=== PATIENT | female | born 1960 | race Caucasian/White ===

== ENCOUNTER 2017-10-26 06:46 | Inpatient (IN) ==
[2017-10-26] MEDS ORDERED: DiltiaZEM 25 MG/5 ML INJECTION IVP ONE (07:09)
[2017-10-26] MEDS ORDERED: LORazepam 1 MG TABLET PO ONE (07:09)
[2017-10-26] MEDS ORDERED: ONDANSETRON 4 MG/2 ML INJECTION IVP ONE (07:09)
[2017-10-26] MEDS ORDERED: NS 1,000 ML IV ONE (07:09)
--- NOTE | 2017-10-26 07:16 | Emergency Department Report ---
General Adult HPI - General Chief complaint: Medical Emergency Stated complaint: dehydrated about a month,feels weak Time Seen by Provider: 10/26/17 07:08 - History of Present Illness HPI narrative: 57-year-old female brought in by EMS with tachycardia and dehydration. She has a long history of alcohol use and nicotinic abuse. Is been struggling with anxiety recently. She also has had issues with weight loss. Increasing weakness and fatigue. She is satting at 95% on room air with a heart rate of 161. Blood pressure stable 114/54. - Related Data Home Medications Medication Instructions Recorded Confirmed Lisinopril 40 tab PO DAILY #0 06/29/11 10/26/17 Metoprolol Tartrate 1 tab PO DAILY #0 06/29/11 10/26/17 Ranitidine [Zantac] 150 mg PO DAILY 10/26/17 10/26/17 Previous Rx's Medication Instructions Recorded Amlodipine [Norvasc] 5 mg PO DAILY #30 tab 05/28/17 Allergies Allergy/AdvReac Type Severity Reaction Status Date / Time No Known Allergies Allergy Unknown Verified 10/26/17 07:13 Review of Systems All systems: reviewed and negative except as stated PFSH Patient Stated Medical History Cataracts Yes Hypertension Yes Gastroesophageal Reflux Yes Disease - Social History Smoking status: Current every day smoker Substance use type: does not use Physical Exam - Limitations Limitations: no limitations - General General appearance: alert, in distress (tachycardia) - Normal Exams: Head:: Normocephalic without trauma Chest/Respirations:: with good airflow, and symmetry bilaterally Abdomen:: Bowel sounds positive, soft, non-tender, non-distended, no hepatosplenomegaly, masses or bruits noted Neurological:: Patient is alert, and oriented, cranial nerves, motor/sensory/ cerebellar, exams w/o gross deficits, to observation Psychiatric:: Patient exhibits, appropriate attention, emotion and affect - Respiratory Respiratory exam: Present: wheezes - Cardiovascular Cardiovascular exam: Present: tachycardia, normal heart sounds Course Vital Signs Temperature 97.6 F 10/26/17 06:48 Pulse Rate 159 H 10/26/17 06:48 Respiratory Rate 22 10/26/17 06:48 Blood Pressure 114/54 10/26/17 06:48 Pulse Oximetry 99 10/26/17 06:48 Temperature 97.6 F 10/26/17 06:48 Pulse Rate 78 10/26/17 10:30 Respiratory Rate 20 10/26/17 10:30 Blood Pressure 110/62 10/26/17 10:30 Pulse Oximetry 94 10/26/17 10:30 Medical Decision Making - [facility] Narrative Medical decision making narrative: Patient initially presented with pulse of 160, blood pressure was stable greater than 120 systolic with appropriate pulse ox on room air. She was very fatigued and weak. Cardizem 10 mg given IV as this initially looks like it may be atrial fibrillation with RVR. She was also given a 1 L bolus of normal saline. CBC CMP ordered. Patient has significantly low potassium with hypokalemia of 2.2. Normal saline 1 L given IV, Zofran 4 mg given IV. Potassium 10 mEq IV with lidocaine a commercial real estate underwriter and 40 mg oral was given. Potassium rechecked and was 2.8. Patient has had significant voluminous diarrhea, with loss of control as she now wears depends. This diarrhea has been going on for over 2 months by history. She has had 30 pound weight loss in the last year. PCR for stool including C. difficile was ordered. Heart rate regulated to 80s with normal sinus rhythm and occasional PAC. I think dehydration was the main cause of this. Patient will be admitted to hospitalist service for continued hydration and management of low potassium. As well as evaluation of chronic diarrhea. - Lab Data Result diagrams: 10/26/17 07:20 10/26/17 09:16 Lab Results 10/26/17 10/26/17 10/26/17 Range/Units 07:20 07:20 09:16 WBC 9.3 (4.5-11.0) T/MM3 RBC 3.91 L (4.00-5.20) M/MM3 Hgb 12.6 (12-16) GM/DL Hct 38.7 (36-46) % MCV 99.0 (80-100) UM3 MCH 32.2 (26-34) UUG MCHC 32.6 (31-37) GM/DL RDW Std Deviation 56.2 H (36.9-50.2) FL Plt Count 304 (130-400) T/MM3 MPV 10.9 (9.4-12.4) UM3 Immature Gran % (Auto) Not performed Neut % (Auto) Not performed Lymph % (Auto) Not performed Towns % (Auto) Not performed Eos % (Auto) Not performed Baso % (Auto) Not performed Neut # (Auto) Not performed Lymph # (Auto) Not performed Towns # (Auto) Not performed Eos # (Auto) Not performed Baso # (Auto) Not performed Abs Immat Gran (auto) Not performed Neutrophils % (Manual) 88.0 H (33-66) % Band Neutrophils % 2.0 (0-6) % Lymphocytes % (Manual) 4.0 L (23-45) % Monocytes % (Manual) 4.0 (0-9.0) % Basophils % (Manual) 2.0 (0-2) % Neutrophils # (Manual) 8.2 H (1.8-7.7) T/MM3 Band Neutrophils # 0.2 T/MM3 Lymphocytes # (Manual) 0.4 L (1-4.8) T/MM3 Monocytes # (Manual) 0.4 (0-0.8) T/MM3 Basophils # (Manual) 0.2 (0-0.2) T/MM3 RBC Morph Comment Normal Turbidity < 20 < 20 (0-20) Sodium 141 141 (134-144) MEQ/L Potassium 2.2 L* 2.8 L* D (3.6-5) MEQ/L Chloride 102 108 H (98-107) MEQ/L Carbon Dioxide 27 28 (22-30) MEQ/L Anion Gap 12 5 (5-15) MEQ/L BUN 10.0 10.0 (7-17) MG/DL Creatinine 0.6 L 0.5 L (0.7-1.2) MG/DL GFR Calculation 102 126 BUN/Creatinine Ratio 17 20 (6-26) RATIO Glucose 124 H 86 (65-110) MG/DL Calculated Osmolality 271 269 (261-280) MOSM/KG Calcium 8.5 7.4 L D (8.4-10.2) MG/DL Total Bilirubin 1.00 (0.20-1.30) MG/DL Icterus Index < 2 < 2 (0-7) AST 106 H (14-36) U/L ALT 77 H (9-52) U/L Alkaline Phosphatase 112 (38-126) U/L Troponin I < 0.012 (0-0.12) ng/ml B-Natriuretic Peptide 386 H (0-175) pg/mL Total Protein 6.3 (6.3-8.2) G/DL Albumin 3.1 L (3.5-5.0) G/DL Globulin 3.2 (2.4-3.6) G/DL Albumin/Globulin Ratio 1.0 L (1.1-2.2) RATIO Specimen Hemolysis < 15 < 15 (0-25) Ur Collection Type Urine Color (YELLOW) Urine Clarity Urine pH (5.0-8.0) Ur Specific [place] (1.015-1.025) Urine Protein (NEGATIVE) Urine Glucose (UA) (NEGATIVE) Urine Ketones (NEGATIVE) Urine Occult Blood (NEGATIVE) Urine Nitrate (NEGATIVE) Urine Bilirubin (NEGATIVE) Urine Urobilinogen (NORMAL) EU/DL Ur Leukocyte Esterase (NEGATIVE) Urinalysis Comment 10/26/17 Range/Units 09:57 WBC (4.5-11.0) T/MM3 RBC (4.00-5.20) M/MM3 Hgb (12-16) GM/DL Hct (36-46) % MCV (80-100) UM3 MCH (26-34) UUG MCHC (31-37) GM/DL RDW Std Deviation (36.9-50.2) FL Plt Count (130-400) T/MM3 MPV (9.4-12.4) UM3 Immature Gran % (Auto) Neut % (Auto) Lymph % (Auto) Towns % (Auto) Eos % (Auto) Baso % (Auto) Neut # (Auto) Lymph # (Auto) Towns # (Auto) Eos # (Auto) Baso # (Auto) Abs Immat Gran (auto) Neutrophils % (Manual) (33-66) % Band Neutrophils % (0-6) % Lymphocytes % (Manual) (23-45) % Monocytes % (Manual) (0-9.0) % Basophils % (Manual) (0-2) % Neutrophils # (Manual) (1.8-7.7) T/MM3 Band Neutrophils # T/MM3 Lymphocytes # (Manual) (1-4.8) T/MM3 Monocytes # (Manual) (0-0.8) T/MM3 Basophils # (Manual) (0-0.2) T/MM3 RBC Morph Comment Turbidity (0-20) Sodium (134-144) MEQ/L Potassium (3.6-5) MEQ/L Chloride (98-107) MEQ/L Carbon Dioxide (22-30) MEQ/L Anion Gap (5-15) MEQ/L BUN (7-17) MG/DL Creatinine (0.7-1.2) MG/DL GFR Calculation BUN/Creatinine Ratio (6-26) RATIO Glucose (65-110) MG/DL Calculated Osmolality (261-280) MOSM/KG Calcium (8.4-10.2) MG/DL Total Bilirubin (0.20-1.30) MG/DL Icterus Index (0-7) AST (14-36) U/L ALT (9-52) U/L Alkaline Phosphatase (38-126) U/L Troponin I (0-0.12) ng/ml B-Natriuretic Peptide (0-175) pg/mL Total Protein (6.3-8.2) G/DL Albumin (3.5-5.0) G/DL Globulin (2.4-3.6) G/DL Albumin/Globulin Ratio (1.1-2.2) RATIO Specimen Hemolysis (0-25) Ur Collection Type Urine, catheter Urine Color Yellow (YELLOW) Urine Clarity Sl cloudy Urine pH 6.5 (5.0-8.0) Ur Specific [place] <=1.005 L (1.015-1.025) Urine Protein Negative (NEGATIVE) Urine Glucose (UA) Negative (NEGATIVE) Urine Ketones Negative (NEGATIVE) Urine Occult Blood Trace-lysed (NEGATIVE) Urine Nitrate Negative (NEGATIVE) Urine Bilirubin Negative (NEGATIVE) Urine Urobilinogen 0.2 (NORMAL) EU/DL Ur Leukocyte Esterase Negative (NEGATIVE) Urinalysis Comment Microscopic not ind. Disposition Clinical Impression: Dehydration, Tachycardia, Hypokalemia, Diarrhea, Weight loss Disposition: 02 To [facility] Condition: Stable Prescriptions: No Action Lisinopril 40 tab PO DAILY #0 Metoprolol Tartrate 1 tab PO DAILY #0 Amlodipine [Norvasc] 5 mg PO DAILY #30 tab Ranitidine [Zantac] 150 mg PO DAILY Referrals: Michael Rosenberg II, MD [Family Provider] - Time of Disposition: 11:26 - Seen By: physician
[2017-10-26] MEDS: SALINE FLUSH 10ml SYRINGE IVF PRN ×2 (07:20→14:53)
--- NOTE | 2017-10-26 07:50 | XRay Report ---
INDICATION: dyspnea,tachy PROCEDURE: CHEST 2-VIEWS UPRIGHT (PA & LAT) Encounter: Initial COMPARISON: September 05, 2017 FINDINGS: The lungs are clear without evidence of focal abnormal airspace opacity. There is no pleural effusion or pneumothorax. The heart size, mediastinal contours and pulmonary vascularity are within normal limits. IMPRESSION: No acute cardiopulmonary disease. .
[2017-10-26] MEDS: LIDOCAINE 1% INJ 10 MG, POTASSIUM CHLORIDE INJ 10 MEQ in NS 100 ML IV SCH (08:27)
[2017-10-26] MEDS ORDERED: ONDANSETRON 4 MG/2 ML INJECTION IVP PRN (11:32)
[2017-10-26] MEDS ORDERED: NICOTINE 21 MG PATCH TD ONE (11:34)
[2017-10-26] MEDS ORDERED: IOHEXOL 300mg/ml 100ml INJECTION ONE (12:00)
[2017-10-26] MEDS ORDERED: SALINE FLUSH 10ml SYRINGE ONE (12:00)
[2017-10-26] MEDS ORDERED: NS 100 ML ONE (12:00)
--- NOTE | 2017-10-26 12:47 | CT Scan Report ---
Indication: abdominal pain, diarrhea, weight loss PROCEDURE: CT abdomen pelvis w con: Encounter: Initial Comparison: None Technique: Axial CT images were performed through the abdomen and pelvis after the administration of intravenous contrast. Coronal and sagittal two-dimensional reformats. Automated Exposure Control and Iterative Reconstruction dose reducing techniques were utilized. Contrast: Omnipaque 300 67 mL Findings: The lung bases are clear. The liver is diffusely decreased in attenuation relative to the spleen consistent with fatty infiltration. No enhancing liver lesion or mass. No bile duct dilatation. The gallbladder is normal. The spleen is normal. The pancreas and adrenal glands are within normal limits. Multiple small nonobstructing stones in the left kidney lower pole. Multiple right renal stones as well with a 10 x 5 mm cluster of stones in the posterior interpolar region. Additional 3 to 4 mm stones in the lower pole on the right. No evidence of a ureteral stone however. The bladder is grossly normal. Uterus is unremarkable. No free fluid. Sigmoid colonic wall thickening and edema. There is also some wall thickening noted within the cecum and hepatic flexure of the colon. No evidence of a small bowel obstruction. Bone windows show no lytic or blastic osseous lesions. Subacute left lower posterior rib fractures involving the eighth through 11th ribs. Impression: 1. Colonic wall thickening and edema, greatest in the sigmoid region could be due to an infectious or inflammatory colitis. 2. Bilateral nephrolithiasis. 3. Hepatic steatosis. 4. Recent appearing left posterior rib fractures. .
[2017-10-26 12:50] VITALS: BMI 17.3
--- NOTE | 2017-10-26 13:02 | History & Physical Report ---
History of Present Illness Date: 10/26/17 Chief complaint: weakness, hypokalemia, diarrhea HPI: Kimberly is a 57 yr Old female who presents to the emergency room today for acute evaluation of weakness and loss of appetite over the last several months. She reported having diarrhea for several months, accompanied with intermittent abdominal pain. However, this morning she became dizzy and felt that she needed acute evaluation. On arrival to the emergency room. She was found to be tachycardic with a heart rate of 162, blood pressure 114/54, afebrile. Further workup was performed, white count 7, normal at 9.3, hemoglobin stable 12.6, platelet count 304, neutrophils 80%, 2% bands. Potassium was found to be significantly low at 2.2, sodium 141, loudly elevated LFTs, AST 106, ALT 77. Initial troponin undetectable. Urinalysis was negative. He was given 10 milliequivalents of IV potassium as well as 40 milliequivalents of oral potassium. Potassium was then rechecked several hours later and it did increase to 2.8. Given ongoing diarrhea, with abdominal pain and hypokalemia. The hospitalist services were contacted and accepted patient for outpatient observation for further evaluation and treatment. It is expected that her stay will be less than 2 overnights. Patient is seen on initial examination. She is alert, oriented and pleasant. She is thin in nature. She reports she has had a three-month history of daily diarrhea 4-5 episodes each morning. She reports she is even incontinent of stool at times. She has had decreased oral intake as she feels that she does not have an appetite. She reports she is had a 57 pound weight loss in one year. Does describe having increased difficulty with her anxiety for the last 6 months to the point that it is causing her to be unable to drive. She reports she initially was seen under the care of Dr. Hewitt, however, then transferred to Dr. Darnell, and more recently to Dr. Rosenberg. She reports that he did check "labs and a urine sample." One month ago and diagnosed her with a urinary tract infection. However, no further findings. She does admit to drinking approximately 10 alcohol drinks a day. Review of Systems All systems PM: 10-point ROS was reviewed, no additional remarkable complaints except - Constitutional Constitutional: Present: anorexia, fatigue, weight loss - Gastrointestinal Gastrointestinal: Present: as per HPI, abdominal pain (diffuse tenderness), change in bowel habits, change in stool character, diarrhea Past Medical History Family History Updates: Reviewed Medications Home Medications Medication Instructions Recorded Confirmed Type Lisinopril 40 tab PO DAILY #0 06/29/11 10/26/17 History Metoprolol Tartrate 1 tab PO DAILY #0 06/29/11 10/26/17 History Ranitidine [Zantac] 150 mg PO DAILY 10/26/17 10/26/17 History Allergies Allergy/AdvReac Type Severity Reaction Status Date / Time No Known Allergies Allergy Unknown Verified 10/26/17 13:10 Exam Vital Signs: Temperature 97.6 F 10/26/17 06:48 Pulse Rate 78 10/26/17 12:05 Respiratory Rate 16 10/26/17 12:05 Blood Pressure 124/79 10/26/17 12:05 Pulse Oximetry 96 10/26/17 12:05 Height/Weight/BMI: Height 1.55 m Weight 41.6 kg Body Mass Index 17.3 - Constitutional Present: no acute distress, well nourished, well developed - Routine HEENT Exam Eye: Present: EOMI ENT: Present: mucous membranes moist, dentition normal - Routine Neck Exam Present: full ROM - Routine Respiratory Exam Present: CTA bilaterally. Absent: wheezes - Routine Cardiovascular Exam Present: RRR, S1, S2. Absent: murmur - Routine Abdominal Exam Present: soft, normoactive bowel sounds, tenderness (Epigastric tenderness with diffuse tenderness), non distended - Routine Extremities Exam Present: full ROM, normal capillary refill - Routine Skin Exam Present: intact, dry, warm - Routine Neurological Exam Present: alert, oriented X3, CN II-XII intact, moving all extremities - Routine Psychiatric Exam Present: normal affect, cooperative Results - Labs CBC & Chem 7: 10/26/17 07:20 10/26/17 16:39 Assessment and Plan (1) Hypokalemia Current visit: Yes Status: Acute (2) Diarrhea Current visit: Yes Status: Acute Assessment and Plan: Impression Hypokalemia- present on admission Diarrhea Unintentional weight loss-over 50 pounds in one year Abdominal pain HTN Cerebral artery aneurysm Chronic alcohol use Chronic tobacco dependence Plan Admit to outpatient observation under the care of Dr Monroy for Hypokalemia dehydration, diarrhea She did receive 10 milligrams of IV potassium as well as 40 milliequivalents of oral potassium in the emergency room. We will continue with normal saline with 40 of KCl for gentle hydration and 100 ML per hour. We will give another 40 milliequivalents orally this afternoon and recheck a chemistry panel at 1600 today. Will monitor on cardiac telemetry for dysrhythmias. CT scan of the abdomen and pelvis ordered Further stool workup is ordered including GI panel, stool culture, H. pylori, stool for occult blood, Elastat and stool for leukocyte for further workup Consult placed for dietary team to evaluate weight loss. Patient reports 57 pounds in one year. Encourage nutritional supplementation Monitor for evidence of alcohol withdrawal, seizure precautions and as needed Serax. Team patch ordered. SCDs to bilateral lower extremity for DVT prophylaxis Likely need outpatient colonoscopy Further orders and plan of care with attending Dr Monroy At time of discharge medical care will return to primary care provider, Dr. Rosenberg - Physician Narrative Narrative: S: Pt reports chronic diarrhea for a couple of months. Also reports significant weight loss over that time. Denies any n/v/d, f/c, cp or sob. Pt denies any significant changes in her life or traveling before these sx's started O: Cards: RRR without murmurs Abd: diffuse tenderness without rebound A/P: Unclear etiology for pt's weight loss and diarrhea. Will do full work up as indicated above and the additional studies indicated below. Will order additional tests: -Order-->HIV, hep c, TSH, FOBT, ESR/CRP, a1c, IgA/TTG, stool k/na -Tests to consider-->Carb breath test for SIBO I saw and examined the pt independently and agree with the LOSS PREVENTION ANALYST/PA plan and evaluation above. Date: 10/26/17 Time: 1844 Hospital Course Summary Disclaimer: The visit summary below is not to be considered part of the above Progress Note. Hospital Course: 10/26/17 Impression Hypokalemia- present on admission Diarrhea Unintentional weight loss-over 50 pounds in one year Abdominal pain HTN Cerebral artery aneurysm Chronic alcohol use Chronic tobacco dependence Plan Admit to outpatient observation under the care of Dr Monroy for Hypokalemia dehydration, diarrhea She did receive 10 milligrams of IV potassium as well as 40 milliequivalents of oral potassium in the emergency room. We will continue with normal saline with 40 of KCl for gentle hydration and 100 ML per hour. We will give another 40 milliequivalents orally this afternoon and recheck a chemistry panel at 1600 today. Will monitor on cardiac telemetry for dysrhythmias. CT scan of the abdomen and pelvis ordered Further stool workup is ordered including GI panel, stool culture, H. pylori, stool for occult blood, Elastat and stool for leukocyte for further workup Consult placed for dietary team to evaluate weight loss. Patient reports 57 pounds in one year. Encourage nutritional supplementation Monitor for evidence of alcohol withdrawal, seizure precautions and as needed Serax. Team patch ordered. SCDs to bilateral lower extremity for DVT prophylaxis Likely need outpatient colonoscopy Further orders and plan of care with attending Dr Monroy At time of discharge medical care will return to primary care provider, Dr. Rosenberg
[2017-10-26] MEDS ORDERED: OXAZEPAM 15 MG CAPSULE PO PRN (13:24)
[2017-10-26] MEDS: POTASSIUM CHLORIDE INJ 40 MEQ in NS 1,000 ML IV SCH (14:52)
[2017-10-27] MEDS: LIDOCAINE 1% INJ 10 MG, POTASSIUM CHLORIDE INJ 10 MEQ in NS 100 ML IV SCH ×2 (00:32→07:34)
[2017-10-27] MEDS ORDERED: ACETAMINOPHEN 325 MG TABLET PO PRN ×2 (02:28→06:45)
[2017-10-27] MEDS: POTASSIUM CHLORIDE INJ 40 MEQ in NS 1,000 ML IV SCH (07:34)
[2017-10-27] MEDS: VANCOMYCIN 250mg/5ml ORAL LIQ PO SCH ×2 (10:47→20:27)
--- NOTE | 2017-10-27 12:41 | Progress Note ---
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 diff, will benefit from scope as outpatient Unintentional weight loss -Over 50 lbs in one year, most of it in the last couple of months -EtoH abuse likely contributing as well as chronic c. diff infection -Will treat c. diff per above -Other work up-->HIV neg, Hep c neg, TSH wnls, CRP/ESR unremarkable. a1c 4.4, cxr unremarkable -Pending-->Stool elastase, TTG/IGA EtOH Abuse -Pt declined EtOH abuse counseling -Monitor for Withdrawals, UDS pending -Thiamine/folate supplements Macrocytic Anemia -Likely from malabsorption -B12/folate pending HTN -On lisinopril, metoprolol and amlodipine at home -Holding for now, pt was borderline hypotensive on admission Transaminitis -Likely from EtOH abuse -CT showed fatty infiltration of liver Left posterior rib fx's -Found on CT -Fall??--will discuss with pt Brain aneurysm -Found in review of her paperwork -10 mm??--will discuss with pt about past evaluation and follow up -Pt is a smoker Ppx -SCDs - Physician Narrative Narrative: Date: 10/27/17 Time: 1206 Hospital Course Summary Disclaimer: The visit summary below is not to be considered part of the above Progress Note. Hospital Course: 10/26/17 Impression Hypokalemia- present on admission Diarrhea Unintentional weight loss-over 50 pounds in one year Abdominal pain HTN Cerebral artery aneurysm Chronic alcohol use Chronic tobacco dependence Plan Admit to outpatient observation under the care of Dr Monroy for Hypokalemia dehydration, diarrhea She did receive 10 milligrams of IV potassium as well as 40 milliequivalents of oral potassium in the emergency room. We will continue with normal saline with 40 of KCl for gentle hydration and 100 ML per hour. We will give another 40 milliequivalents orally this afternoon and recheck a chemistry panel at 1600 today. Will monitor on cardiac telemetry for dysrhythmias. CT scan of the abdomen and pelvis ordered Further stool workup is ordered including GI panel, stool culture, H. pylori, stool for occult blood, Elastat and stool for leukocyte for further workup Consult placed for dietary team to evaluate weight loss. Patient reports 57 pounds in one year. Encourage nutritional supplementation Monitor for evidence of alcohol withdrawal, seizure precautions and as needed Serax. Team patch ordered. SCDs to bilateral lower extremity for DVT prophylaxis Likely need outpatient colonoscopy Further orders and plan of care with attending Dr Monroy At time of discharge medical care will return to primary care provider, Dr. Rosenberg
[2017-10-27] MEDS: FOLIC ACID 1 MG TABLET PO SCH (17:58)
[2017-10-27] MEDS: MetroNIDAZOLE 500 MG TABLET PO SCH (17:59)
[2017-10-28] MEDS: MetroNIDAZOLE 500 MG TABLET PO SCH ×3 (07:58→16:54)
[2017-10-28] MEDS: FOLIC ACID 1 MG TABLET PO SCH (07:59)
[2017-10-28] MEDS ORDERED: LISINOPRIL 40 MG TABLET PO SCH (09:00)
[2017-10-28] MEDS ORDERED: CHOLESTYRAMINE LIGHT 4 G PACKET PO PRN (13:44)
--- NOTE | 2017-10-28 14:02 | Discharge Summary ---
Discharge Information Date of admission: 10/27/17 15:27 Anticipated date of discharge: 10/28/17 Attending Physician: Cayla Monroy MD Primary care physician: Michael Rosenberg II, MD - Discharge Diagnosis (1) Hypokalemia Status: Acute (2) Diarrhea Status: Acute C-Diff Diarrhea Hypokalemia Macrocytic Anemia Unintentional weight loss Known cerebral aneurysm HTN RIb fractures - Procedures Procedures: None - Laboratory Labs: 10/27/17 04:08 10/27/17 04:08 Stool positive for Occult blood Stool positive for C-Diff - Microbiology None - Radiology Radiology: 10/26/17-CT scan of abdomen and pelvis Impression: 1. Colonic wall thickening and edema, greatest in the sigmoid region could be due to an infectious or inflammatory colitis. 2. Bilateral nephrolithiasis. 3. Hepatic steatosis. 4. Recent appearing left posterior rib fractures. Chest Xray- No acute findings - Pathology None History of Present Illness HPI: Kimberly is a 57 yr Old female who presents to the emergency room today for acute evaluation of weakness and loss of appetite over the last several months. She reported having diarrhea for several months, accompanied with intermittent abdominal pain. However, this morning she became dizzy and felt that she needed acute evaluation. On arrival to the emergency room. She was found to be tachycardic with a heart rate of 162, blood pressure 114/54, afebrile. Further workup was performed, white count 7, normal at 9.3, hemoglobin stable 12.6, platelet count 304, neutrophils 80%, 2% bands. Potassium was found to be significantly low at 2.2, sodium 141, loudly elevated LFTs, AST 106, ALT 77. Initial troponin undetectable. Urinalysis was negative. He was given 10 milliequivalents of IV potassium as well as 40 milliequivalents of oral potassium. Potassium was then rechecked several hours later and it did increase to 2.8. Given ongoing diarrhea, with abdominal pain and hypokalemia. The hospitalist services were contacted and accepted patient for outpatient observation for further evaluation and treatment. It is expected that her stay will be less than 2 overnights. Patient is seen on initial examination. She is alert, oriented and pleasant. She is thin in nature. She reports she has had a three-month history of daily diarrhea 4-5 episodes each morning. She reports she is even incontinent of stool at times. She has had decreased oral intake as she feels that she does not have an appetite. She reports she is had a 57 pound weight loss in one year. Does describe having increased difficulty with her anxiety for the last 6 months to the point that it is causing her to be unable to drive. She reports she initially was seen under the care of Dr. Hewitt, however, then transferred to Dr. Darnell, and more recently to Dr. Rosenberg. She reports that he did check "labs and a urine sample." One month ago and diagnosed her with a urinary tract infection. However, no further findings. She does admit to drinking approximately 10 alcohol drinks a day. Objective Vital signs: Temperature 98.2 F 10/28/17 07:34 Pulse Rate 113 H 10/28/17 08:00 Respiratory Rate 14 10/28/17 07:34 Blood Pressure 151/84 H 10/28/17 07:34 Pulse Oximetry 97 10/28/17 07:34 Height/Weight/BMI: Weight 44.1 kg - Constitutional Present: no acute distress, well nourished, well developed - Routine HEENT Exam Eye: Present: EOMI ENT: Present: mucous membranes moist, dentition normal - Routine Respiratory Exam Present: CTA bilaterally. Absent: wheezes - Routine Cardiovascular Exam Present: RRR, S1, S2. Absent: murmur - Routine Abdominal Exam Present: soft, normoactive bowel sounds, non distended. Absent: tenderness - Routine Extremities Exam Present: normal capillary refill - Routine Skin Exam Present: intact, dry, warm - Routine Neurological Exam Present: alert, oriented X3, CN II-XII intact, moving all extremities - Routine Lymphatic Exam Lymphatic: Absent: adenopathy - Routine Psychiatric Exam Present: normal affect, cooperative Hospital Course This is a general summary of the patient's hospital course. For more details refer to the complete medical record. Hospital course: 10/26/17 Impression Hypokalemia- present on admission Diarrhea Unintentional weight loss-over 50 pounds in one year Abdominal pain HTN Cerebral artery aneurysm Chronic alcohol use Chronic tobacco dependence Plan Admit to outpatient observation under the care of Dr Monroy for Hypokalemia dehydration, diarrhea She did receive 10 milligrams of IV potassium as well as 40 milliequivalents of oral potassium in the emergency room. We will continue with normal saline with 40 of KCl for gentle hydration and 100 ML per hour. We will give another 40 milliequivalents orally this afternoon and recheck a chemistry panel at 1600 today. Will monitor on cardiac telemetry for dysrhythmias. CT scan of the abdomen and pelvis ordered Further stool workup is ordered including GI panel, stool culture, H. pylori, stool for occult blood, Elastat and stool for leukocyte for further workup Consult placed for dietary team to evaluate weight loss. Patient reports 57 pounds in one year. Encourage nutritional supplementation Monitor for evidence of alcohol withdrawal, seizure precautions and as needed Serax. Team patch ordered. SCDs to bilateral lower extremity for DVT prophylaxis Likely need outpatient colonoscopy Further orders and plan of care with attending Dr Monroy At time of discharge medical care will return to primary care provider, Dr. Rosenberg Chronic Diarrhea 2/2 C. Diff colitis -PO Vanc D1/10 -Otherwise GI panel negative, -Likely contributing to malabsorption and weight loss -FOBT +, no visible blood reported, likely from c. diff, will benefit from scope as outpatient Unintentional weight loss -Over 50 lbs in one year, most of it in the last couple of months -EtoH abuse likely contributing as well as chronic c. diff infection -Will treat c. diff per above -Other work up-->HIV neg, Hep c neg, TSH wnls, CRP/ESR unremarkable. a1c 4.4, cxr unremarkable -Pending-->Stool elastase, TTG/IGA EtOH Abuse -Pt declined EtOH abuse counseling -Monitor for Withdrawals, UDS pending -Thiamine/folate supplements Macrocytic Anemia -Likely from malabsorption -B12/folate pending HTN -On lisinopril, metoprolol and amlodipine at home -Holding for now, pt was borderline hypotensive on admission Transaminitis -Likely from EtOH abuse -CT showed fatty infiltration of liver Left posterior rib fx's -Found on CT -Fall??--will discuss with pt Brain aneurysm -Found in review of her paperwork -10 mm??--will discuss with pt about past evaluation and follow up -Pt is a smoker 10/28/17-Discharge Patient is seen and examined on day of discharge. Although discussion of staying at the hospital longer was recommended and discussed by Dr. Monroy, patient is adamantly states she wants to be discharged home. Her loose stools have improved, and she did have a formed stool earlier today. We will plan to send her home on Flagyl antibiotic 3 times a day for 10 days total for continued treatment of C. difficile. Would like her to follow-up with Dr. Rosenberg in the next week, at which time she will receive results from pending laboratory studies including B12 and folate. Encourage patient to push oral intake. Line to resume normal home antihypertensive medications including lisinopril, metoprolol and Norvasc. Discharged in stable condition. Time spent with patient: discharge greater than 30 minutes Discharge Plan - Discharge Disposition Discharge Date: 10/28/17 Disposition: 01 Discharged Home, Self-Care *Condition: Stable Reason For Visit (Visit label in EMR): CDIFF - Discharge Medications *Discharge Medications: New Acetaminophen [Tylenol] 325 - 650 mg PO Q5H PRN tab PRN Reason: Discomfort MetroNIDAZOLE [Flagyl] 500 mg PO TIDWM #30 tab Continue Lisinopril 40 tab PO DAILY #0 Metoprolol Tartrate 1 tab PO DAILY #0 Amlodipine [Norvasc] 5 mg PO DAILY #30 tab Ranitidine [Zantac] 150 mg PO DAILY - Discharge Packet/Instructions *Diet: Regular *Activity: Activity as tolerated *Pain Management/Treatment: Tylenol as needed for pain *Wound Care: None Additional Instructions: Take Flaygl three times a day for 10 days *Expected Signs/Symptoms: Improvement in loose stools *Notify Physician if: Fever, abdominal pain, inability to keep fluids down *During Business Hours Contact: Dr. Rosenberg *After Business Hours Contact: Page physician or present to the emergency room *Pending Lab/Results: No Pending Lab - Referrals/Follow Up *Referrals/Follow Up: Michael Rosenberg II, MD [Family Provider] - (Schedule follow up apt for 1 week call for appointment ( to be seen in 1 week) office number [phone]) - Patient Handouts Physician Narrative - Narrative Physician: Efren Em MD, other Attestation Narrative: S: Pt reports she feels much better and that her stools have slowed down. She really wants to go home. She notes her is there and can take good care of her. She wants to spend the holidays at home. O: Cards: RRR without murmurs Lungs: CTAB without wheezes A/P: Pt is set on going home today. Discussed with her and he notes he is off for the next week so he feels comfortable taking her home and taking care of her. Pt is improving in her BMs. Will discharge with 10 day course of flagyl. Recommended to pt that she follow closely with pcp to make sure her c. diff infection is treated appropriately. FOBT was positive which is likely related to colitis but would highly recommend colonoscopy as an outpatient to rule out other causes of bleed and possible malignancy. Pt was not interested in talking about EtOH cessation and declined eval and treatment. Date: 10/28/17 Time: 4337
[2017-10-28 16:03] VITALS: BP 120/69; PULSE 74; RESP 16; TEMP 98.4; O2SAT 96
== END 2017-10-28 17:45 | disposition home or self-care (01) | DRG 372 ==
LOC: ED 06:46 → MED 06:46
PROVIDERS: ADMIT Internal Medicine; ATTEND Internal Medicine